=== PATIENT | male | born 1960 | race African-American/Black ===

== ENCOUNTER 2021-01-15 02:44 | Inpatient (IN) | payer OTHER ==
[2021-01-15] MEDS ORDERED: ALBUTEROL SO4 2.5/IPRATROPIUM 0.5 INH SOL 3 ML VIAL.NEB. NEB ONE (02:51)
[2021-01-15] MEDS: ALBUTEROL SO4 2.5/IPRATROPIUM 0.5 INH SOL 3 ML VIAL.NEB. NEB SCH ×8 (03:00→20:35)
[2021-01-15 03:08] VITALS: BMI 23.6
[2021-01-15 03:27] LABS: HEMATOCRIT 29.1 % (35.4-49); HEMOGLOBIN 9.4 GM/dL (11.7-16.9); MCH 22.7 pg (25.7-33.7); MCHC 32.2 g/dl (32.0-35.9); MEAN CELL VOLUME 70.4 fl (80-96); MEAN PLT VOLUME 8.3 fl (7.5-11.1); PLATELET COUNT 388 10^3/uL (134-434); RBC 4.14 M/mm3 (4.00-5.60); RDW 15.9 % (11.9-15.9); WHITE BLOOD COUNT 18.3 K/mm3 (4.0-10.0)
[2021-01-15 03:29] LABS: VENOUS BASE EXCESS -8.2 mmol/L (-2-2); VENOUS O2 SATURATION 57.6 % (70-80); VENOUS PCO2 38.5 mmHg (38-52); VENOUS PH 7.283 (7.310-7.410)
[2021-01-15 03:38] LABS: INR 1.25 (0.83-1.09)
[2021-01-15 03:40] LABS: ACTIVATED PTT 31.7 SECONDS (25.2-36.5)
[2021-01-15 03:48] LABS: CHLORIDE 106 mmol/L (98-107); SODIUM 141 mmol/L (136-145)
[2021-01-15 03:50] LABS: CALCIUM 7.2 mg/dL (8.5-10.1)
[2021-01-15 03:52] LABS: ALBUMIN 2.9 g/dl (3.4-5.0); ANION GAP 15 MMOL/L (8-16); BLOOD UREA NITROGEN 30.8 mg/dL (7-18); CO2 19 mmol/L (21-32); GLUCOSE,RANDOM 228 mg/dL (74-106)
[2021-01-15 03:54] LABS: CREATININE 5.5 mg/dL (0.55-1.3); SGOT/AST 64 U/L (15-37); SGPT/ALT 58 U/L (13-61)
[2021-01-15 03:55] LABS: BILIRUBIN,TOTAL 0.3 mg/dL (0.2-1); TOT PROT 7.2 g/dl (6.4-8.2)
[2021-01-15 03:58] LABS: ALK PHOS 71 U/L (45-117)
[2021-01-15] MEDS ORDERED: PIPERACILLIN/TAZOB 3.375 GM 3.375 GM in DEXTROSE 5%-WATER - 50 ML IVPB ONE (04:21)
[2021-01-15] MEDS ORDERED: PIPERACILLIN/TAZOB 3.375 GM 3.375 GM/50 ML BAG IVPB ONE (04:32)
[2021-01-15 04:41] LABS: LACTIC ACID 3.2 mmol/L (0.4-2.0)
[2021-01-15] MEDS ORDERED: HEPARIN NA (PORCINE) 5,000 UNITS/ML 1ML VIAL IVPUSH PRN (04:48)
[2021-01-15] MEDS ORDERED: HEPARIN SOD,PORK IN 0.45% NACL 25,000 UNITS/500 ML INFUS.BAG IVPB SCH (05:00)
[2021-01-15] MEDS ORDERED: HEPARIN NA (PORCINE) 5,000 UNITS/ML 1ML VIAL ONE (05:29)
[2021-01-15] MEDS ORDERED: HEPARIN INFUSION - 25,000 UNITS/500 ML INFUS.BAG IVPB ONE (05:30)
[2021-01-15] MEDS: HEPARIN NA (PORCINE) 5,000 UNITS/ML 1ML VIAL IVPUSH PRN ×2 (05:50→16:23)
[2021-01-15] MEDS ORDERED: SODIUM CHLORIDE 0.9% 1000 ML INFUS.BAG IV ONE (06:00)
[2021-01-15] MEDS ORDERED: VANCOMYCIN PREMIX 1.5 GM 1,500 MG/300 ML BAG IVPB ONE (06:30)
[2021-01-15] MEDS ORDERED: ALBUTEROL SO4 0.083% IH SOL 2.5 MG/3 ML VIAL.NEB. NEB PRN (06:31)
[2021-01-15 06:49] LABS: ARTERIAL BLD GAS O2 SATURATION 96.5 % (95-98); ARTERIAL BLOOD GAS BASE EXCESS -5.8 mmol/L (-2-2); ARTERIAL BLOOD GAS PO2 88.8 mmHg (80-100); ARTERIAL BLOOD GAS pH 7.355 (7.350-7.450)
[2021-01-15 06:52] LABS: ALLENS TEST POSITIVE; VENT MODE S/T; VENT RATE 12
[2021-01-15] MEDS ORDERED: ASPIRIN 81 MG CHEWABLE TABLETS ONE (06:53)
[2021-01-15] MEDS: ASPIRIN 325 MG TABLET PO SCH ×2 (07:19→15:16)
[2021-01-15 09:33] LABS: URINE APPEARANCE TURBID; URINE BILIRUBIN NEGATIVE (NEGATIVE); URINE COLOR YELLOW; URINE GLUCOSE (UA) NEGATIVE (NEGATIVE); URINE KETONE TRACE (NEGATIVE); URINE LEUK ESTERASE TRACE (NEGATIVE); URINE NITRITE NEGATIVE (NEGATIVE); URINE PROTEIN 2+ (NEGATIVE); URINE UROBILINOGEN 0.2 mg/dL (0.2-1.0)
[2021-01-15 09:56] LABS: EPI CELLS MODERATE /uL (0-25.1); HYALINE CASTS NO SEEN /uL (0-3.1); URINE BACTERIA MANY /uL (0-1359); URINE RBC MODERATE /uL (0-23.9); URINE WBC MODERATE /uL (0-25.8); YEAST FEW (NEGATIVE)
[2021-01-15] MEDS ORDERED: FUROSEMIDE 40 MG/4 ML INJECTABLE VIAL IVPUSH SCH (11:00)
[2021-01-15] MEDS ORDERED: morphine SULFATE 4 MG/ML VIAL IVPUSH ONE (11:21)
[2021-01-15] MEDS ORDERED: morphine SULFATE 4 MG/ML VIAL ONE (11:22)
[2021-01-15 12:51] LABS: HEMOGLOBIN 9.8 GM/dL (11.7-16.9); MCH 23.1 pg (25.7-33.7); MCHC 32.7 g/dl (32.0-35.9); MEAN CELL VOLUME 70.7 fl (80-96); MEAN PLT VOLUME 8.3 fl (7.5-11.1); PLATELET COUNT 399 10^3/uL (134-434); RBC 4.24 M/mm3 (4.00-5.60); RDW 16.3 % (11.9-15.9); WHITE BLOOD COUNT 18.5 K/mm3 (4.0-10.0)
[2021-01-15 13:36] LABS: ALBUMIN 2.6 g/dl (3.4-5.0)
[2021-01-15 13:37] LABS: CALCIUM 7.6 mg/dL (8.5-10.1); MAGNESIUM 1.2 mg/dL (1.8-2.4)
[2021-01-15 13:41] LABS: CREATININE 6.1 mg/dL (0.55-1.3)
[2021-01-15 13:42] LABS: BILIRUBIN,TOTAL 0.2 mg/dL (0.2-1); TOT PROT 6.9 g/dl (6.4-8.2)
[2021-01-15] MEDS ORDERED: FUROSEMIDE 100 MG/10 ML INJECTABLE VIAL IVPB SCH (14:00)
[2021-01-15 14:01] LABS: LACTIC ACID 4.4 mmol/L (0.4-2.0)
[2021-01-15] MEDS ORDERED: FUROSEMIDE 40 MG/4 ML INJECTABLE VIAL ONE (14:07)
[2021-01-15] MEDS ORDERED: RAPID SEQUENCE INTUBATION KIT NR ONE (14:10)
[2021-01-15 14:21] LABS: ANISOCYTOSIS 1+; MACROCYTOSIS 0; PLATELET ESTIMATE NORMAL
[2021-01-15] MEDS ORDERED: PROPOFOL 1,000,000 MCG/100 ML VIAL ONE (14:38)
[2021-01-15] MEDS: MUPIROCIN 2% TOPICAL OINTMENT FOR DECOLONIZATION NS SCH ×2 (15:16→23:01)
[2021-01-15] MEDS ORDERED: PROPOFOL 1,000,000 MCG/100 ML VIAL IVPB SCH (15:30)
[2021-01-15] MEDS: MEROPENEM 500 MG in DEXTROSE 5%-WATER 100 ML IVPB SCH ×2 (16:46→23:36)
[2021-01-15] MEDS ORDERED: ETOMIDATE 40 MG/20 ML VIAL IVPUSH ONE (16:50)
[2021-01-15] MEDS ORDERED: ROCURONIUM BROMIDE 50 MG/5 ML VIAL IVPUSH ONE (16:50)
[2021-01-15] MEDS ORDERED: PROPOFOL 200 MG/20 ML VIAL IVPUSH ONE (16:50)
[2021-01-15 17:40] LABS: ARTERIAL BLD GAS O2 SATURATION 93.5 % (95-98); ARTERIAL BLOOD GAS BASE EXCESS -5.9 mmol/L (-2-2); ARTERIAL BLOOD GAS pH 7.275 (7.350-7.450)
[2021-01-15 17:41] LABS: ALLENS TEST POSITIVE; VENT MODE AC; VENT RATE 16
[2021-01-15] MEDS ORDERED: MIDAZOLAM IN 0.9 % SOD.CHLORID 1 MG/1 ML PLAST..BAG ONE (20:22)
[2021-01-15] MEDS ORDERED: MIDAZOLAM HCL 2 MG/2 ML SINGLE DOSE VIAL IVPUSH ONE (20:22)
[2021-01-15] MEDS ORDERED: MIDAZOLAM 100 MG in SODIUM CHLORIDE 100 ML IVPB SCH (20:30)
[2021-01-15] MEDS ORDERED: INSULIN SLIDING SCALE (NOVOLOG) 1 VIAL SQ SCH (22:00)
[2021-01-15] MEDS ORDERED: CHLORHEXIDINE GLUCONATE 4% CLEANSER FOR DECOLONIZATION TP SCH (22:00)
[2021-01-15 23:14] LABS: INR 1.14 (0.83-1.09); PROTHROMBIN TIME (PATIENT) 13.4 SEC (9.7-13.0)
[2021-01-15 23:17] LABS: ACTIVATED PTT 41.2 SECONDS (25.2-36.5)
[2021-01-16 06:45] VITALS: BP 117/86; PULSE 81; TEMP 97.5
[2021-01-18 13:09] LABS: ANTIGLOMERULAR BASEMENT MEN.AB 3 units (0-20)
[2021-01-18 17:06] LABS: ATYPICAL pANCA <1:20 titer (Neg:<1:20); C-ANCA <1:20 titer (Neg:<1:20)
== END 2021-01-16 06:46 | disposition short-term general hospital (02) | DRG 720 ==
LOC: JER 02:44 → JERBED 06:31 → JICU 09:04
PROVIDERS: ADMIT Internal Medicine Pulmonary Disease; ATTEND Internal Medicine Pulmonary Disease
PROC: 5A1935Z Respiratory Ventilation, Less than 24 Consecutive Hours (ICD-10-PCS; principal; 2021-01-15)
PROC: 0BH17EZ Insertion of Endotracheal Airway into Trachea, Via Natural or Artificial Opening (ICD-10-PCS; 2021-01-15)
PROC: 05HM33Z Insertion of Infusion Device into Right Internal Jugular Vein, Percutaneous Approach (ICD-10-PCS; 2021-01-15)
PROC: B543ZZA Ultrasonography of Right Jugular Veins, Guidance (ICD-10-PCS; 2021-01-15)
DX: A41.9 Sepsis, unspecified organism (principal); I21.4 Non-ST elevation (NSTEMI) myocardial infarction; J96.01 Acute respiratory failure with hypoxia; I11.0 Hypertensive heart disease with heart failure; J18.9 Pneumonia, unspecified organism; N17.9 Acute kidney failure, unspecified; R57.0 Cardiogenic shock; J44.0 Chronic obstructive pulmonary disease with (acute) lower respiratory infection; E87.2 Acidosis; E78.5 Hyperlipidemia, unspecified; L03.119 Cellulitis of unspecified part of limb; M86.9 Osteomyelitis, unspecified; F17.210 Nicotine dependence, cigarettes, uncomplicated; D72.829 Elevated white blood cell count, unspecified; R00.0 Tachycardia, unspecified
CPT/HCPCS: 31500; 36415; 36600; 71045-TC-FY; 71250-TC; 76775-TC; 80053; 81003; 82803; 82962; 83036; 83516; 83520; 83605; 83735; 84100; 84155; 84165; 84484; 85025; 85610; 85730; 86038; 86225; 86256; 87040; 87086; 87804; 87899; 93005; 93010; 93306-TC; 94002; 94640; 99285-25; C9803; G0480; J1644; U0003; U0005